=== PATIENT | female | born 1995 | race Caucasian/White ===

== ENCOUNTER 2016-06-09 19:37 | Emergency (ER) | payer OTHER ==
[~2016-06-09] VITALS: Ht 162.6 cm; Wt 63.0 kg
[2016-06-09 19:50] VITALS: Ht 162.6 cm; Wt 63.0 kg
[2016-06-09] MEDS ORDERED: morphine 4 MG/ML VIAL IV STA (20:13)
[2016-06-09] MEDS ORDERED: SOD CHLORIDE 0.9% 100 ML IV STA (20:13)
[2016-06-09] MEDS ORDERED: ONDANSETRON 4 MG INJ IV STA (20:13)
[2016-06-09 20:38] LABS: ADD SCAN DIFF NO
[2016-06-09 20:45] LABS: BASOPHIL # 0.1 10^3/ul (0.0-0.1); BASOPHILS % 0.5 % (0.0-2.0); EOSINOPHILS # 0.1 10^3/ul (0.0-0.5); EOSINOPHILS % 0.5 % (0.0-7.0); HEMATOCRIT 47.5 % (37.0-47.0); HEMOGLOBIN 16.2 g/dl (12.0-16.0); LYMPHOCYTES # 1.4 10^3/ul (0.8-2.9); MEAN CORPUSCULAR HGB CONC 34.1 g/dl (32.0-37.0); MEAN CORPUSCULAR VOLUME 93.7 fl (82.0-101.0); MEAN PLATELET VOLUME 10.3 fl (7.4-10.4); MONOCYTE # 0.5 10^3/ul (0.3-0.9); MONOCYTES % 4.2 % (0.0-11.0); NEUTROPHIL # 8.8 10^3/ul (1.6-7.5); NEUTROPHILS % 81.5 % (39.0-77.0); PLATELET COUNT 278 10^3/UL (140-415); RED BLOOD COUNT 5.07 10^6/ul (4.20-5.40); RED CELL DISTRIBUTION WIDTH 12.5 % (11.5-14.5); WHITE BLOOD COUNT 10.8 10^3/ul (4.8-10.8)
[2016-06-09 20:45] LABS: ADD UMIC YES; URINE BILIRUBIN (Dip) NEGATIVE (NEGATIVE); URINE BLOOD (Dip) NEGATIVE (NEGATIVE); URINE COLOR LT. YELLOW (YELLOW); URINE GLUCOSE (Dip) NEGATIVE (NEGATIVE); URINE KETONES (Dip) NEGATIVE (NEGATIVE); URINE LEUKOCYTE ESTERASE (Dip) NEGATIVE (NEGATIVE); URINE NITRITE (Dip) NEGATIVE (NEGATIVE); URINE TOTAL PROTEIN (Dip) 1+ (NEGATIVE); URINE UROBILINOGEN (Dip) 0.2 E.U./dL (0.1-1.0)
[2016-06-09 21:01] LABS: POTASSIUM 4.2 mmol/L (3.5-5.1)
[2016-06-09 21:03] LABS: BILIRUBIN,INDIRECT 0.3 mg/dl (0-1.1); BILIRUBIN,TOTAL 0.3 mg/dl (0.2-1.3); CREATININE 0.74 mg/dl (0.44-1.00)
[2016-06-09 21:04] LABS: ALBUMIN/GLOBULIN RATIO 1.31; CALCIUM 9.9 mg/dl (8.4-10.2); TOTAL PROTEIN 8.8 g/dl (6.1-8.1)
[2016-06-09 21:40] LABS: BACTERIA,URINE OCCASIONAL; MUCUS,URINE FEW; SQUAMOUS EPITHELIAL CELL,UR FEW; URINE RBCS NONE SEEN /HPF (0)
--- NOTE | 2016-06-09 22:21 | RADRPT ---
PROCEDURE: CT abdomen and pelvis without contrast. CLINICAL INDICATION: Abdominal pain TECHNIQUE: CT scan of the abdomen and pelvis without contrast was performed. Sagittal and coronal reformatted images were obtained from the axial source images. CTDI = 8.87 mGy; DLP = 476.86 mGy-cm COMPARISON: None available. FINDINGS: Visualized lower thorax: The lung bases are clear. There is no evidence for pleural effusion. Liver, gallbladder, pancreas and spleen: The liver is normal and size, contour and attenuation. Th ere is no evidence for a liver mass or ductal dilatation. Tiny hypodensities scattered throughout th e hepatic parenchyma are too small to characterize but most likely reflects cysts the largest approx imately 7 mm in the posterior subcapsular right hepatic lobe The gallbladder is unremarkable. No co mmon bile duct abnormality is demonstrated. The pancreas is unremarkable. The spleen is normal in size. Adrenal glands and genitourinary system: The adrenal glands are normal bilaterally. The kidneys are normal and size, contour and attenuation with no evidence for masses, calculi or hydronephrosis. T he ureters are unremarkable. The urinary bladder is contracted and difficult to evaluate. The uteru s is unremarkable and there is a small less than 2 cm hypodense area within the right ovary/adnexa t here is a water attenuation likely a follicle, there is trace amount of free fluid in the cul-de-sac . Gastrointestinal system: The stomach is normal in caliber and without evidence of wall thickening. The small bowel is normal in caliber with no ileus, obstruction or wall thickening. Some subtle inc reased density within the lumen of the appendix without appendicolith is noted, the appendiceal diam eter is normal as is the surrounding fat. The colon shows no evidence for wall thickening or acute abnormality. There is no evidence for colitis or diverticulitis. Peritoneum, retroperitoneum, lymph nodes and vessels: The abdominal aorta is normal in caliber. No pneumoperitoneum is present. The inferior vena cava is unremarkable. There is no evidence for angelita opathy or mass. There is no ascites. Osseous structures and musculoskeletal findings: There is no fracture, lytic or blastic lesion. Patel bcutaneous scarring within the lower anterior abdominal wall suggest prior surgery, possibly cesarea n section. RPTAT:HJJR IMPRESSION: 1. Trace amount of free fluid in the pelvic cul-de-sac with a small less than 2 cm water attenuatin g lesion in the right ovary/adnexa likely a follicle. 2. No evidence of appendicitis. 3. Lower anterior abdominal wall scar probably from prior section. Physician Corina Date Time Electronically viewed and signed by John Hargrove Physician on 06/09/2016 22:21 JR/
--- NOTE | 2016-06-10 01:21 | RADRPT ---
PROCEDURE: US Pelvis CLINICAL INDICATION: Pelvic pain. TECHNIQUE: Sonographic evaluation of the pelvis was performed utilizing as abdominal technique. C urved array transabdominal transducer was utilized. Images were reviewed on the high-resolution PACS workstation. COMPARISON: 11/14/2014 FINDINGS: Exam is technically limited due to lack of transvaginal imaging. The uterus is normal in size, echogenicity, and morphology, measuring 7.0 x 5.3 x 6.0 cm. The uterus is anteverted in normal position. Endometrial stripe was not well seen due to technical limitation. The ovaries were not seen due to overlying bowel gas. There are no adnexal masses. There is no significant free fluid in the pelvis. IMPRESSION: 1. Technically limited exam without transvaginal imaging. 2. Nonvisualization of the ovaries due to overlying bowel gas. 3. Nonvisualization of endometrial stripe due to technical limitation. 4. Suggest repeat exam with transvaginal imaging. RPTAT: HLDM .Fahad Sanabria MD, MD Date Time Electronically viewed and signed by .Fahad Sanabria MD, on 06/10/2016 01:20 .M/
[2016-06-10] MEDS ORDERED: IBUP-1542 PO (01:53)
[2016-06-10] MEDS ORDERED: ONDA4TAB14 PO (01:54)
[2016-06-10 02:18] VITALS: BP 131/83; PULSE 74; RESP 18; TEMP 98.6
--- NOTE | 2016-06-10 03:30 | ERD ---
ER Documentation Chief Complaint Date/Time DATE: 06/10/16 TIME: 03:23 Chief Complaint N/V TODAY C/O AP HPI Patient is a 21-year-old female who presents emergency department with left lower quadrant pain which started today. Patient states the pain started around 10 AM today. Patient states that the pain is constant. Patient states that she has vomited approximately 10-12 times today, nonbloody nonbilious. Patient also reports 5-6 episodes of nonbloody non-mucous diarrhea. Patient states that earlier today, she had a bulge in her mid left abdomen that popped out and she pushed back in. Patient states that this has been occurring intermittently for the past 5-6 months. Patient states that she ate [employer] for dinner yesterday. Patient denies any fever, chills, pain with urination, urinary frequency, urinary urgency, vaginal bleeding, excessive vaginal discharge. Patient denies any chest pain, shortness of breath, loss of consciousness. Patient's last menstrual period was on 05/11/16. She reports history of abdominal surgery, 3 C-sections. ROS All systems reviewed and are negative except as per history of present illness. Medications Home Meds Active Scripts Ondansetron (Ondansetron Odt) 4 Mg Tab.rapdis, 4 MG PO Q6H Y for NAUSEA AND/OR VOMITING, #10 TAB Prov:LEE ANN BYRD PA-C 06/10/16 Ibuprofen* (Motrin*) 600 Mg Tab, 600 MG PO Q6, #30 TAB Prov:LEE ANN BYRD PA-C 06/10/16 Allergies Allergies: Coded Allergies: No Known Allergy (Verified , 11/13/14) PMhx/Soc Medical and Surgical Hx: pt denies Medical Hx History of Surgery: Yes (3 C SECTIONS) Anesthesia Reaction: No Hx Neurological Disorder: No Hx Respiratory Disorders: No Hx Cardiac Disorders: No Hx Psychiatric Problems: No Hx Miscellaneous Medical Probl: No Hx Alcohol Use: Yes (BEER OCCASIONALLY) Hx Substance Use: No Hx Tobacco Use: Yes Smoking Status: Current every day smoker Physical Exam Vitals Vital Signs Date Time Temp Pulse Resp B/P Pulse Ox O2 Delivery O2 Flow Rate FiO2 06/10/16 02:18 98.6 74 18 131/83 100 06/09/16 19:50 98.5 95 18 118/75 100 Physical Exam GENERAL: Well-developed, well-nourished female. Appears in severe pain. HEAD: Normocephalic, atraumatic. EYES: Pupils are equally reactive bilaterally. EOMs grossly intact. No conjunctival erythema. ENT: Moist mucous membranes. No uvula deviation. No kissing tonsils. NECK: Supple. No meningismus. Normal range of motion of the neck. LUNG: Clear to auscultation bilaterally. No rhonchi, wheezing, rales or coarse breath sounds. HEART: Regular rate and rhythm. No murmurs, rubs or gallops. ABDOMEN: No scars, ecchymosis or rashes noted. Soft, and nondistended. Tender to palpation bilateral lower quadrants. Positive bowel sounds in all four quadrants. No rebound tenderness, no guarding. (-) McBurney's point tenderness. No CVA tenderness. BACK: No midline tenderness. EXTREMITIES: Equal pulses bilaterally. No peripheral clubbing, cyanosis or edema. No unilateral leg swelling. NEUROLOGIC: Alert and oriented. Moving all four extremities without any difficulty. Normal speech. Steady gait. SKIN: Normal color. Warm and dry. No rashes or lesions. Result Diagram: 06/09/16202406/09/162024 Results 24 hrs Laboratory Tests Test 06/09/16 20:25 06/09/16 20:35 Alanine Aminotransferase (ALT/SGPT) 33IU/L Albumin 5.0g/dl Albumin/Globulin Ratio 1.31 Alkaline Phosphatase 94IU/L Anion Gap 20 Aspartate Amino Transf (AST/SGOT) 36IU/L Basophils # 0.110^3/ul Basophils % 0.5% Blood Urea Nitrogen 12mg/dl Calcium Level 9.9mg/dl Carbon Dioxide Level 30mmol/L Chloride Level 102mmol/L Creatinine 0.74mg/dl Direct Bilirubin 0.00mg/dl Eosinophils # 0.110^3/ul Eosinophils % 0.5% Globulin 3.80g/dl Glucose Level 119mg/dl Hematocrit 47.5% Hemoglobin 16.2g/dl Indirect Bilirubin 0.3mg/dl Lipase 32U/L Lymphocytes # 1.410^3/ul Lymphocytes % 13.0% Mean Corpuscular Hemoglobin 32.0pg Mean Corpuscular Hemoglobin Concent 34.1g/dl Mean Corpuscular Volume 93.7fl Mean Platelet Volume 10.3fl Monocytes # 0.510^3/ul Monocytes % 4.2% Neutrophils # 8.810^3/ul Neutrophils % 81.5% Nucleated Red Blood Cells # 0.010^3/ul Nucleated Red Blood Cells % 0.0/100WBC Platelet Count 80107^3/UL Potassium Level 4.2mmol/L Red Blood Count 5.0710^6/ul Red Cell Distribution Width 12.5% Sodium Level 148mmol/L Total Bilirubin 0.3mg/dl Total Protein 8.8g/dl White Blood Count 10.810^3/ul Urine Bacteria OCCASIONAL Urine Bilirubin NEGATIVE Urine Clarity CLEAR Urine Color LT. YELLOW Urine Glucose NEGATIVE% Urine Hemoglobin NEGATIVE Urine Ketones NEGATIVE Urine Leukocyte Esterase NEGATIVE Urine Microscopic RBC NONE SEEN/HPF Urine Microscopic WBC 0-2/HPF Urine Mucus FEW Urine Nitrite NEGATIVE Urine Specific [place] >=1.030 Urine Squamous Epithelial Cells FEW Urine Total Protein 1+ Urine Urobilinogen 0.2 E.U./dL Urine pH 6.0 Current Medications Medications (Trade) Dose Ordered Sig/Rosa Elena Route PRN Reason Start Time Stop Time Status Last Admin Dose Admin Sodium Chloride (NS) 100 ml @ 100 mls/hr Q1H STAT IV 06/09/16 20:13 06/09/16 21:12 DC 06/09/16 20:23 Morphine Sulfate (morphine) 4 mg ONCE STAT IV 06/09/16 20:13 06/09/16 20:16 DC 06/09/16 20:23 Ondansetron HCl (Zofran Inj) 4 mg ONCE STAT IV 06/09/16 20:13 06/09/16 20:16 DC 06/09/16 20:23 Procedures/MDM ED COURSE: The patient was stable throughout ED course. I kept the patient and/or family informed of laboratory and diagnostic imaging results throughout the ED course. DIAGNOSTIC IMAGING: Read by radiologist. DIAGNOSTIC IMAGING REPORT Patient: MICHAEL MCKENZIE : 1995 Age: 21 Sex: F MR #: [id number] DOS: 06/09/162012 Ordering MD: LEE ANN BYRD PA-C Location: [facility] Room/Bed: PROCEDURE: CT abdomen and pelvis without contrast. CLINICAL INDICATION: Abdominal pain TECHNIQUE: CT scan of the abdomen and pelvis without contrast was performed. Sagittal and coronal reformatted images were obtained from the axial source images. CTDI = 8.87 mGy; DLP = 476.86 mGy-cm COMPARISON: None available. FINDINGS: Visualized lower thorax: The lung bases are clear. There is no evidence for pleural effusion. Liver, gallbladder, pancreas and spleen: The liver is normal and size, contour and attenuation. There is no evidence for a liver mass or ductal dilatation. Tiny hypodensities scattered throughout the hepatic parenchyma are too small to characterize but most likely reflects cysts the largest approximately 7 mm in the posterior subcapsular right hepatic lobe The gallbladder is unremarkable. No common bile duct abnormality is demonstrated. The pancreas is unremarkable. The spleen is normal in size. Adrenal glands and genitourinary system: The adrenal glands are normal bilaterally. The kidneys are normal and size, contour and attenuation with no evidence for masses, calculi or hydronephrosis. The ureters are unremarkable. The urinary bladder is contracted and difficult to evaluate. The uterus is unremarkable and there is a small less than 2 cm hypodense area within the right ovary/adnexa there is a water attenuation likely a follicle, there is trace amount of free fluid in the cul-de-sac. Gastrointestinal system: The stomach is normal in caliber and without evidence of wall thickening. The small bowel is normal in caliber with no ileus, obstruction or wall thickening. Some subtle increased density within the lumen of the appendix without appendicolith is noted, the appendiceal diameter is normal as is the surrounding fat. The colon shows no evidence for wall thickening or acute abnormality. There is no evidence for colitis or diverticulitis. Peritoneum, retroperitoneum, lymph nodes and vessels: The abdominal aorta is normal in caliber. No pneumoperitoneum is present. The inferior vena cava is unremarkable. There is no evidence for adenopathy or mass. There is no ascites. Osseous structures and musculoskeletal findings: There is no fracture, lytic or blastic lesion. Subcutaneous scarring within the lower anterior abdominal wall suggest prior surgery, possibly section. RPTAT:HJJR IMPRESSION: 1. Trace amount of free fluid in the pelvic cul-de-sac with a small less than 2 cm water attenuating lesion in the right ovary/adnexa likely a follicle. 2. No evidence of appendicitis. 3. Lower anterior abdominal wall scar probably from prior section. Physician Corina Date Time Electronically viewed and signed by Physician Corina on 06/09/2016 22:21 JR/ CC: LEE ANN BYRD PA-C Given that patient continued to have pelvic pain, a pelvic ultrasound was obtained. See results below. DIAGNOSTIC IMAGING REPORT Patient: MICHAEL MCKENZIE : 1995 Age: 21 Sex: F MR #: [id number] DOS: 06/09/16 2233 Ordering MD: LEE ANN BYRD PA-C Location: [facility] Room/Bed: PROCEDURE: US Pelvis CLINICAL INDICATION: Pelvic pain. TECHNIQUE: Sonographic evaluation of the pelvis was performed utilizing as abdominal technique. Curved array transabdominal transducer was utilized. Images were reviewed on the high-resolution PACS workstation. COMPARISON: 11/14/2014 FINDINGS: Exam is technically limited due to lack of transvaginal imaging. The uterus is normal in size, echogenicity, and morphology, measuring 7.0 x 5.3 x 6.0 cm. The uterus is anteverted in normal position. Endometrial stripe was not well seen due to technical limitation. The ovaries were not seen due to overlying bowel gas. There are no adnexal masses. There is no significant free fluid in the pelvis. IMPRESSION: 1. Technically limited exam without transvaginal imaging. 2. Nonvisualization of the ovaries due to overlying bowel gas. 3. Nonvisualization of endometrial stripe due to technical limitation. 4. Suggest repeat exam with transvaginal imaging. RPTAT: HLDM .Fahad Sanabria MD, Date Time Electronically viewed and signed by .Fahad Sanabria MD, MD on 06/10/2016 01: 20 .M/ CC: LEE ANN BYRD PA-C I discussed these results with the patient including limited findings given that transvaginal US was not performed. Patient states that her pain has improved now and she wishes to go home. Patient is aware that she may return at any time to have additional studies done that were not completed. MEDICATIONS GIVEN: IV fluids, morphine, Zofran Patient tolerated medication well with no adverse reactions. MEDICAL DECISION MAKING: This is a 21-year-old female presents with left lower quadrant pain 1 day. Patient also reports vomiting. Vital signs were reviewed. Patient is afebrile. CBC showed no evidence of systemic infection or severe anemia. CMP showed no evidence of electrolyte abnormalities, severe acidosis, alkalosis, renal failure , or liver disease. Lipase showed no evidence of acute pancreatitis. UA showed no evidence of acute infection or hematuria. Low suspicion for UTI, pyelonephritis or nephrolithiasis. Urine test was negative. CT abdomen and pelvis showed Trace amount of free fluid in the pelvic cul-de-sac with a small less than 2 cm water attenuating lesion in the right ovary/adnexa likely a follicle. No evidence of appendicitis. Lower anterior abdominal wall scar probably from prior section. Patient's transabdominal pelvic US was negative. At this time, patient's presentation is most consistent with abdominal pain of unknown etiology. I have a much lower clinical concern for acute coronary syndrome, AAA, mesenteric ischemia, lower lobe pneumonia, DKA, bowel perforation , bowel obstruction, cholecystitis, pancreatitis, gastritis, GERD, diverticulitis, UTI, pyelonephritis, nephrolithiasis, appendicitis, constipation , , ectopic , PID, ovarian torsion. Patient advised that the "bulge" is describing may be a hernia. Low suspicion for incarcerated or strangulated hernia at this time. Patient will need to follow up with a general surgery for possible surgical repair of her possible hernia. PRESCRIPTIONS: Ibuprofen, Zofran DISCHARGE: At this time, patient is stable for discharge and outpatient management. I have instructed the patient to follow-up with his/her primary care physician in 1-2 days. I have instructed the patient to promptly return to the ER at any time for any new or worsening symptoms including increased pain, nausea, vomiting, diarrhea, fever, weakness or LOC. The patient and/or family expressed understanding of and agreement with this plan. All questions were answered. Home care instructions were provided. Departure Diagnosis: Primary Impression: Abdominal pain Abdominal location: unspecified location Qualified Code: R10.9 - Abdominal pain, unspecified location Additional Impression: Vomiting Vomiting type: unspecified Vomiting Intractability: unspecified Nausea presence: unspecified Qualified Code: R11.10 - Vomiting, intractability of vomiting not specified, presence of nausea not specified, unspecified vomiting type Condition: Stable Patient Instructions: Abdominal Pain Additional Instructions: Return to emergency department for any new or worsening symptoms including but not limited to severe pain, fever, chills, nausea, vomiting or loss of consciousness. Call your primary care doctor TOMORROW for an appointment during the next 1-2 days.See the doctor sooner or return here if your condition worsens before your appointment time. LEE ANN BYRD PA-C Jun 10, 2016 03:30
== END 2016-06-10 02:20 | disposition home or self-care (01) ==
LOC: FTE 19:37
DX: R10.32 Left lower quadrant pain (principal); R11.10 Vomiting, unspecified; F17.210 Nicotine dependence, cigarettes, uncomplicated; R10.2 Pelvic and perineal pain
CPT/HCPCS: 36415; 74176; 76856; 80053; 81001; 83690; 85025; 96374; 96375; J2270; J2405; J7040; Z7502; 81003

== ENCOUNTER 2016-11-25 19:42 | Emergency (ER) | payer OTHER ==
[~2016-11-25] VITALS: Ht 162.6 cm; Wt 72.0 kg
[~2016-11-25 19:42] MED LIST: CEPH-443 PO; CLOT21CR7 VAG; DENIES MEDS; IBUP-1542 PO; ONDA4TAB14 PO; PREN1TAB17 PO
[2016-11-25 19:56] VITALS: Ht 162.6 cm; Wt 72.0 kg
[2016-11-25] MEDS ORDERED: ACETAMINOPHEN 325 MG TAB PO STA (20:24)
[2016-11-25] MEDS ORDERED: ONDANSETRON (ODT) 4 MG TAB ODT STA (20:24)
[2016-11-25 20:48] LABS: BASOPHILS % 0.3 % (0.0-2.0); EOSINOPHILS # 0.4 10^3/ul (0.0-0.5); EOSINOPHILS % 3.9 % (0.0-7.0); HEMATOCRIT 39.7 % (37.0-47.0); HEMOGLOBIN 13.9 g/dl (12.0-16.0); LYMPHOCYTES # 0.9 10^3/ul (0.8-2.9); LYMPHOCYTES % 10.2 % (15.0-51.0); MEAN CORPUSCULAR HEMOGLOBIN 32.9 pg (29.0-33.0); MEAN CORPUSCULAR VOLUME 94.1 fl (82.0-101.0); MEAN PLATELET VOLUME 9.9 fl (7.4-10.4); MONOCYTE # 0.7 10^3/ul (0.3-0.9); MONOCYTES % 7.4 % (0.0-11.0); NEUTROPHILS % 77.9 % (39.0-77.0); PLATELET COUNT 231 10^3/UL (140-415); RED BLOOD COUNT 4.22 10^6/ul (4.20-5.40); RED CELL DISTRIBUTION WIDTH 11.9 % (11.5-14.5)
[2016-11-25 20:57] LABS: ADD UMIC YES; UR ASCORBIC ACID NEGATIVE (NEGATIVE); UR BILIRUBIN (Dip) NEGATIVE (NEGATIVE); UR BLOOD (Dip) 1+ mg/dL (NEGATIVE); UR CLARITY SLIGHTLY CLOUDY (CLEAR); UR COLOR YELLOW (YELLOW); UR GLUCOSE (Dip) NEGATIVE (NEGATIVE); UR KETONES (Dip) 1+ mg/dL (NEGATIVE); UR LEUKOCYTE ESTERASE (Dip) NEGATIVE Leu/ul (NEGATIVE); UR MUCUS FEW /HPF (NONE SEEN); UR NITRITE (Dip) NEGATIVE (NEGATIVE); UR RBC 2 /HPF (0-5); UR SPECIFIC GRAVITY (Dip) 1.017 (1.003-1.030); UR SQUAMOUS EPITHELIAL CELL FEW /HPF (FEW); UR TOTAL PROTEIN (Dip) NEGATIVE (NEGATIVE); UR UROBILINOGEN (Dip) NEGATIVE (NEGATIVE)
[2016-11-25 21:01] LABS: INR 1.03; PROTIME 13.5 Sec (12.2-14.2); PT RATIO 1.1
[2016-11-25 21:02] LABS: PARTIAL THROMBOPLASTIN TIME 31.1 Sec (25.0-35.0)
[2016-11-25 21:15] LABS: ALBUMIN 4.7 g/dl (3.3-4.9); ALBUMIN/GLOBULIN RATIO 1.38; BILIRUBIN,INDIRECT 0.2 mg/dl (0-1.1); BILIRUBIN,TOTAL 0.2 mg/dl (0.2-1.3); CALCIUM 9.8 mg/dl (8.4-10.2); CREATININE 0.71 mg/dl (0.44-1.00); POTASSIUM 3.5 mmol/L (3.5-5.1); TOTAL PROTEIN 8.1 g/dl (6.1-8.1)
--- NOTE | 2016-11-25 22:33 | RADRPT ---
PROCEDURE: US OB. CLINICAL INDICATION: . Pain. TECHNIQUE: Multiple sonographic images of the pelvis were obtained. Transabdominal and transvagin al views of the pelvis are available for review. The images were reviewed on a PACS workstation. COMPARISON: No prior studies are available for comparison. FINDINGS: An intrauterine probable early gestational sac at 10 mm is identified, coarse 25 weeks 4 days size.. No pole or cardiac activity is detected. No subchorionic hemorrhage is identified. There is a 1.9 cm complex right ovarian cyst. The right ovary is otherwise unremarkable with color flow.. Left ovary is not identified. There is no adnexal mass. There is small amount of free fluid in the anterior cul-de-sac. IMPRESSION: 1. Intrauterine sac-like structure at 5 weeks 4 days size without pole or heart motion, likel y represents an early intrauterine too small to identify a pole. pole should be visualized with the next few days. No adnexal mass or gross free fluid to suggest ectopic pregna ncy. 2. Mild free fluid in the anterior cul-de-sac. 3. Left ovary not identified. 4. Hemorrhagic right ovarian probable corpus luteum cyst. RPTAT: HMVK .Patricio Mullins MD, Date Time Electronically viewed and signed by .Patricio Mullins MD, on 11/25/2016 22:33 .K/
[2016-11-25 22:47] VITALS: BP 122/70; PULSE 79; RESP 18; TEMP 98.1
--- NOTE | 2016-11-25 23:30 | ERD ---
ER Documentation Chief Complaint Date/Time DATE: 11/25/16 TIME: 23:25 Chief Complaint GEN AP +N/V/D. SEEN AT [facility] LAST NIGHT. 3 WEEKS PREG. HPI This patient is a 21-year-old female presenting to the emergency department with complaints of generalized abdominal pain, nausea, vomiting, and diarrhea as well as being 3 weeks as a new diagnosis last night. Symptoms have been ongoing intermittently for the past 3 days. Symptoms are worsening now. She is Ab2 LC 3 and last menstrual cycle was 10-11-16. She denies vaginal discharge, bleeding, back pain, fevers, chills, or other symptoms. ROS All systems reviewed and are negative except as per history of present illness. Medications Home Meds Active Scripts Ondansetron (Ondansetron Odt) 4 Mg Tab.rapdis, 4 MG PO Q6H Y for NAUSEA AND/OR VOMITING, #10 TAB Prov:LEE ANN BYRD PA-C 06/10/16 Ibuprofen* (Motrin*) 600 Mg Tab, 600 MG PO Q6, #30 TAB Prov:LEE ANN BYRD PA-C 06/10/16 Allergies Allergies: Coded Allergies: No Known Allergy (Verified , 11/13/14) PMhx/Soc History of Surgery: Yes (3 C SECTIONS) Anesthesia Reaction: No Hx Neurological Disorder: No Hx Respiratory Disorders: No Hx Cardiac Disorders: No Hx Psychiatric Problems: No Hx Miscellaneous Medical Probl: No Hx Alcohol Use: Yes (BEER OCCASIONALLY) Hx Substance Use: No Hx Tobacco Use: Yes Smoking Status: Current every day smoker Physical Exam Vitals Vital Signs Date Time Temp Pulse Resp B/P Pulse Ox O2 Delivery O2 Flow Rate FiO2 11/25/16 22:47 98.1 79 18 122/70 98 Room Air 11/25/16 19:56 98.0 79 18 128/68 96 Physical Exam Const: Nontoxic, well-appearing female in no acute distress. Head: Atraumatic Eyes: Normal Conjunctiva ENT: Normal External Ears, Nose and Mouth. Neck: Full range of motion..~ No meningismus. Resp: Clear to auscultation bilaterally Cardio: Regular rate and rhythm, no murmurs Abd: Soft, non distended. Normal bowel sounds. Mild suprapubic tenderness palpation bilaterally with no laterality to one side. No McBurney's point tenderness. Skin: No petechiae or rashes Back: No midline or flank tenderness Ext: No cyanosis, or edema Neur: Awake and alert Psych: Normal Mood and Affect Result Diagram: 11/25/16203011/25/162030 Results 24 hrs Laboratory Tests Test 11/25/16 20:31 White Blood Count 9.010^3/ul Red Blood Count 4.2210^6/ul Hemoglobin 13.9g/dl Hematocrit 39.7% Mean Corpuscular Volume 94.1fl Mean Corpuscular Hemoglobin 32.9pg Mean Corpuscular Hemoglobin Concent 35.0g/dl Red Cell Distribution Width 11.9% Platelet Count 88013^3/UL Mean Platelet Volume 9.9fl Neutrophils % 77.9% Lymphocytes % 10.2% Monocytes % 7.4% Eosinophils % 3.9% Basophils % 0.3% Nucleated Red Blood Cells % 0.0/100WBC Neutrophils # (Manual) 710^3/ul Lymphocytes # 0.910^3/ul Monocytes # 0.710^3/ul Eosinophils # 0.410^3/ul Basophils # 0.010^3/ul Nucleated Red Blood Cells # 0.010^3/ul Prothrombin Time 13.5Sec Prothrombin Time Ratio 1.1 INR International Normalized Ratio 1.03 Activated Partial Thromboplast Time 31.1Sec Urine Color YELLOW Urine Clarity SLIGHTLY CLOUDY Urine pH 7.0 Urine Specific [place] 1.017 Urine Ketones 1+mg/dL Urine Nitrite NEGATIVEmg/dL Urine Bilirubin NEGATIVEmg/dL Urine Urobilinogen NEGATIVEmg/dL Urine Leukocyte Esterase NEGATIVELeu/ul Urine Microscopic RBC 2/HPF Urine Microscopic WBC 4/HPF Urine Squamous Epithelial Cells FEW/HPF Urine Mucus FEW/HPF Urine Hemoglobin 1+mg/dL Urine Glucose NEGATIVEmg/dL Urine Total Protein NEGATIVEmg/dl Sodium Level 137mmol/L Potassium Level 3.5mmol/L Chloride Level 99mmol/L Carbon Dioxide Level 24mmol/L Anion Gap 18 Blood Urea Nitrogen 7mg/dl Creatinine 0.71mg/dl Glucose Level 94mg/dl Calcium Level 9.8mg/dl Total Bilirubin 0.2mg/dl Direct Bilirubin 0.00mg/dl Indirect Bilirubin 0.2mg/dl Aspartate Amino Transf (AST/SGOT) 20IU/L Alanine Aminotransferase (ALT/SGPT) 30IU/L Alkaline Phosphatase 68IU/L Total Protein 8.1g/dl Albumin 4.7g/dl Globulin 3.40g/dl Albumin/Globulin Ratio 1.38 Beta HCG, Quantitative 88909.0mIU/ml Current Medications Medications (Trade) Dose Ordered Sig/Rosa Elena Route PRN Reason Start Time Stop Time Status Last Admin Dose Admin Acetaminophen (Tylenol Tab) 650 mg ONCE STAT PO 11/25/16 20:24 11/25/16 20:26 DC 11/25/16 20:53 Ondansetron HCl (Zofran Odt) 4 mg ONCE STAT ODT 11/25/16 20:24 11/25/16 20:26 DC 11/25/16 20:53 Procedures/MDM EMERGENCY DEPARTMENT COURSE / MEDICAL DECISION MAKING: This is a 21-year-old female who comes to the emergency room secondary to complaints of nausea, vomiting, diarrhea, and suprapubic pain. The patient was given p.o. Tylenol and p.o. Zofran in the department. On re- evaluation, the patient was feeling improved. Lab results reviewed. CBC: No signs of anemia or leukocytosis. Chemistry: No significant acute abnormalities. UA: No signs of urinary tract infection. Beta-hCG: Consistent with term of . Blood type: ) positive. Radiology: PROCEDURE: US OB. CLINICAL INDICATION: . Pain. TECHNIQUE: Multiple sonographic images of the pelvis were obtained. Transabdominal and transvaginal views of the pelvis are available for review. The images were reviewed on a PACS workstation. COMPARISON: No prior studies are available for comparison. FINDINGS: An intrauterine probable early gestational sac at 10 mm is identified, coarse 25 weeks 4 days size.. No pole or cardiac activity is detected. No subchorionic hemorrhage is identified. There is a 1.9 cm complex right ovarian cyst. The right ovary is otherwise unremarkable with color flow.. Left ovary is not identified. There is no adnexal mass. There is small amount of free fluid in the anterior cul-de-sac. IMPRESSION: 1. Intrauterine sac-like structure at 5 weeks 4 days size without pole or heart motion, likely represents an early intrauterine too small to identify a pole. pole should be visualized with the next few days. No adnexal mass or gross free fluid to suggest ectopic . 2. Mild free fluid in the anterior cul-de-sac. 3. Left ovary not identified. 4. Hemorrhagic right ovarian probable corpus luteum cyst. RPTAT: HMVK .Patricio Mullins MD, MD Date Time Electronically viewed and signed by .Patricio Mullins MD, on 11/25/2016 22:33 The primary diagnosis is and not yet delivered in the first trimester. Secondary diagnosis is diarrhea I have low suspicion for ectopic , tubo-ovarian abscess, acute abdomen , sepsis, and other emergent conditions at this time. Discharge: I have discussed the lab results and diagnostic findings with the patient and answered any questions or concerns. 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 The patient was advised to followup with their PMD in 1-2 days and to return to the Emergency Department if there are any new or worsening symptoms. The patient understood and agreed with the diagnosis, treatment and plan. The patient is stable for discharge at this time. Departure Diagnosis: Primary Impression: and not yet delivered in first trimester Additional Impression: Diarrhea Condition: Fair Patient Instructions: Treating Diarrhea, , Established, Normal Symptoms Additional Instructions: Follow up with your PCP within the next 1-3 days for a repeat evaluation. If you require a referral to a specialist, your Primary Care Provider may be able to provide this for you. In most patient cases, a referral is not required. If you have further questions regarding this matter, please ask your Primary Care Provider. Return the the emergency department immediately if symptoms worsen or change. If you have any questions regarding medications, ask your pharmacist or us before you leave. If any adverse reactions, occur while taking your medications, discontinue the treatment and return to the emergency department immediately. If any new or worsening symptoms, uncontrolled fevers, or other unexplained symptoms occur, return to the emergency department immediately. Take your medications as directed, and complete the entire course of treatment. COLIN PAZ PA-C Nov 25, 2016 23:29
== END 2016-11-25 22:48 | disposition home or self-care (01) ==
LOC: FTE 19:42
DX: O99.89 Other specified diseases and conditions complicating pregnancy, childbirth and the puerperium (principal); R30.0 Dysuria; R10.84 Generalized abdominal pain; O99.331 Smoking (tobacco) complicating pregnancy, first trimester; F17.210 Nicotine dependence, cigarettes, uncomplicated; O21.9 Vomiting of pregnancy, unspecified; R10.2 Pelvic and perineal pain; Z3A.01 Less than 8 weeks gestation of pregnancy
CPT/HCPCS: 36415; 76801; 76817; 80053; 81001; 84702; 85025; 85610; 85730; 86900; 86901; 87086; Z7502; Z7610

== ENCOUNTER 2016-12-01 06:44 | Emergency (ER) | payer OTHER ==
[~2016-12-01] VITALS: Ht 157.5 cm; Wt 75.0 kg
[~2016-12-01 06:44] MED LIST changes: -CEPH-443 PO; -CLOT21CR7 VAG; -DENIES MEDS; -PREN1TAB17 PO
[2016-12-01 06:46] VITALS: Ht 157.5 cm; Wt 75.0 kg
[2016-12-01] MEDS ORDERED: ACETAMINOPHEN 325 MG TAB PO STA (06:55)
[2016-12-01] MEDS ORDERED: ONDANSETRON 4 MG INJ IV STA (06:55)
[2016-12-01] MEDS ORDERED: SOD CHLORIDE 0.9% 1,000 ML IV STA (06:55)
--- NOTE | 2016-12-01 07:06 | ERD ---
ER Documentation Chief Complaint Date/Time DATE: 12/01/16 TIME: 07:02 Chief Complaint 5 weeks with spotting, here before w/ same HPI This is a 21-year-old female 6 para 3 with 2 previous miscarriages. The patient states she is currently 5 weeks dated by last mental period which was in October 2016. The patient recently found out she was 1 week ago when she was seen at [facility] for abdominal cramping. She has not yet received any care but is taking vitamins. She indicates that yesterday she had persistent nausea and decrease in appetite. The patient indicates that she awoke 2 hours prior to arrival and while going to the bathroom had bright red vaginal bleeding. She stated the amount of blood was similar to a normal menstrual cycle. It was associated with severe lower abdominal cramping. She states the abdominal cramping has been persistent for the past 2 hours and is 8 out of 10 in intensity. She has not taken any analgesic medication. She had no fevers or shaking or chills. She denies a headache. She denies any swelling of her lower extremities and no shortness of breath peer ROS All systems reviewed and are negative except as per history of present illness. Medications Home Meds Active Scripts Ondansetron (Ondansetron Odt) 4 Mg Tab.rapdis, 4 MG PO Q6H Y for NAUSEA AND/OR VOMITING, #10 TAB Prov:MARQUIS GARZON 12/01/16 Cephalexin* (Keflex*) 500 Mg Capsule, 500 MG PO QID for 10 Days, CAP Prov:MARQUIS GARZON 12/01/16 Ondansetron (Ondansetron Odt) 4 Mg Tab.rapdis, 4 MG PO Q6H Y for NAUSEA AND/OR VOMITING, #10 TAB Prov:LEE ANN BYRD PA-C 06/10/16 Ibuprofen* (Motrin*) 600 Mg Tab, 600 MG PO Q6, #30 TAB Prov:LEE ANN BYRD PA-C 06/10/16 Allergies Allergies: Coded Allergies: No Known Allergy (Verified , 11/13/14) PMhx/Soc History of Surgery: Yes (3 C SECTIONS) Anesthesia Reaction: No Hx Neurological Disorder: No Hx Respiratory Disorders: No Hx Cardiac Disorders: No Hx Psychiatric Problems: No Hx Miscellaneous Medical Probl: No Hx Alcohol Use: Yes (BEER OCCASIONALLY) Hx Substance Use: No Hx Tobacco Use: Yes Smoking Status: Former smoker Physical Exam Vitals Vital Signs Date Time Temp Pulse Resp B/P Pulse Ox O2 Delivery O2 Flow Rate FiO2 12/01/16 09:21 84 18 110/62 99 Room Air 12/01/16 06:46 99.0 91 18 119/67 99 Physical Exam Constitutional:Well-developed. Well-nourished. HEENT:Normocephalic. Atraumatic.Pupils were equal round reactive to light. Moist mucous membranes.No tonsillar exudates. Neck: No nuchal rigidity. No lymphadenopathy. No posterior cervical spine tenderness or step-offs. Respiratory: Not using accessory muscles of respiration.Lungs were clear to auscultation bilaterally. No rhonchi. No rales. No wheezing. Cardiovascular: Regular rate regular rhythm.No murmurs. No rubs were appreciated.S1, S2 normal. Distal pulses are palpable 2+ bilaterally. GI: Abdomen was soft. Suprapubic tenderness. Non Distended. No pulsatile abdominal masses or bruits. No rebound. No guarding. Bowel sounds were present and normal. : Mild amount of gross blood present within the vaginal vault. Cervix was closed nonfriable. Pelvic exam was performed by myself and the patient denied a female nurse director of entertainment be present. No endocervical discharge. No adnexal masses or CMT tenderness Muscle skeletal: Full range of motion of both the upper and lower extremities bilaterally.Normal muscle tone.No assymetrical calf tenderness or swelling. Skin: No petechia, no purpura. No lesions on the palms or the soles of the feet. No maculopapular rash. NEURO: Patient was alert, awake, orientated x3.No facial droop. Gait observed and normal with no ataxia.Speech had regular rate and rhythm. No focal neurological deficits. Result Diagram: 12/01/16 0715 12/01/16 0715 Results 24 hrs Laboratory Tests Test 12/01/16 07:15 White Blood Count 14.410^3/ul Red Blood Count 4.1610^6/ul Hemoglobin 13.6g/dl Hematocrit 38.5% Mean Corpuscular Volume 92.5fl Mean Corpuscular Hemoglobin 32.7pg Mean Corpuscular Hemoglobin Concent 35.3g/dl Red Cell Distribution Width 11.4% Platelet Count 32780^3/UL Mean Platelet Volume 9.8fl Neutrophils % 83.8% Lymphocytes % 8.3% Monocytes % 6.5% Eosinophils % 0.6% Basophils % 0.4% Nucleated Red Blood Cells % 0.0/100WBC Neutrophils # (Manual) 12.110^3/ul Lymphocytes # 1.210^3/ul Monocytes # 0.910^3/ul Eosinophils # 0.110^3/ul Basophils # 0.110^3/ul Nucleated Red Blood Cells # 0.010^3/ul Prothrombin Time 13.1Sec Prothrombin Time Ratio 1.0 INR International Normalized Ratio 0.99 Activated Partial Thromboplast Time 31.3Sec Urine Color [place] Urine Clarity SLIGHTLY CLOUDY Urine pH 6.0 Urine Specific [place] 1.029 Urine Ketones 1+mg/dL Urine Nitrite NEGATIVEmg/dL Urine Bilirubin NEGATIVEmg/dL Urine Urobilinogen NEGATIVEmg/dL Urine Leukocyte Esterase 3+[place]/ul Urine Microscopic RBC 59/HPF Urine Microscopic WBC 45/HPF Urine Squamous Epithelial Cells FEW/HPF Urine Mucus MANY/HPF Urine Hemoglobin 3+mg/dL Urine Glucose NEGATIVEmg/dL Urine Total Protein 1+mg/dl Sodium Level 137mmol/L Potassium Level 3.4mmol/L Chloride Level 96mmol/L Carbon Dioxide Level 26mmol/L Anion Gap 18 Blood Urea Nitrogen 5mg/dl Creatinine 0.61mg/dl Glucose Level 108mg/dl Calcium Level 9.8mg/dl Total Bilirubin 0.3mg/dl Direct Bilirubin 0.00mg/dl Indirect Bilirubin 0.3mg/dl Aspartate Amino Transf (AST/SGOT) 17IU/L Alanine Aminotransferase (ALT/SGPT) 23IU/L Alkaline Phosphatase 64IU/L Total Protein 8.3g/dl Albumin 4.3g/dl Globulin 4.00g/dl Albumin/Globulin Ratio 1.07 Beta HCG, Quantitative 27804.0mIU/ml Current Medications Medications (Trade) Dose Ordered Sig/Rosa Elena Route PRN Reason Start Time Stop Time Status Last Admin Dose Admin Sodium Chloride (NS) 1,000 ml @ 1,000 mls/hr Q1H STAT IV 12/01/16 06:55 12/01/16 07:54 DC 12/01/16 07:26 Acetaminophen (Tylenol Tab) 650 mg ONCE STAT PO 12/01/16 06:55 8/27/17 07:01 DC 12/01/16 07:26 Ondansetron HCl 4 mg 4 mg ONCE STAT IV 12/01/16 06:55 12/01/16 07:01 DC 12/01/16 07:26 Cefazolin Sodium (Ancef 1 Gm/50 ml (Pmx)) 50 ml @ 100 mls/hr ONCE IVPB 12/01/16 08:30 12/01/16 08:59 DC 12/01/16 08:33 Procedures/MDM This is a very pleasant 21-year-old female who presented to the emergency department with vaginal bleeding her first trimester . IV access was established by nursing staff and she was given a liter bolus of 0.9 normal saline as well as IV Zofran due to her nausea. I also obtained an ultrasound which indicated a single live intrauterine . The patient had a significant urinary tract infection which I did feel could be exacerbating her symptoms and she received IV Ancef after urine culture was obtained. The patient now was able to tolerate oral intake and states she did feel comfortable being discharged home. She was given a prescription of Keflex. Ultrasounds findings included: 1. Single live intrauterine with an estimated gestational age of 6 weeks 2 days by ultrasound criteria, as above. 2. Nonspecific small amount of pelvic free fluid is present. No sonographic evidence to indicate ectopic gestation is seen at this time. The patient was discharged home in fair condition. They were instructed to return to the emergency department at any time if there was any worsening of their condition. The patient stated they would follow up with their PCP in the next 24-48 hours to initiate a suitable medication regimen under the care of their PCP as well as to allow their PCP to monitor any drug reactions. The patient was discharged home with prescriptions after they gave informed consent to the new medication. They were also fully informed by myself on the adverse effects and adverse drug interactions in order to provide adequate safeguards to prevent possible adverse reactions to medications. Departure Diagnosis: Primary Impression: Vaginal bleeding in patient at less than 20 weeks gestation Additional Impression: Urinary tract infection during in first trimester Condition: MARQUIS Mueller Dec 01, 2016 07:06
[2016-12-01 07:48] LABS: BASOPHIL # 0.1 10^3/ul (0.0-0.1); BASOPHILS % 0.4 % (0.0-2.0); EOSINOPHILS # 0.1 10^3/ul (0.0-0.5); EOSINOPHILS % 0.6 % (0.0-7.0); HEMATOCRIT 38.5 % (37.0-47.0); HEMOGLOBIN 13.6 g/dl (12.0-16.0); LYMPHOCYTES # 1.2 10^3/ul (0.8-2.9); LYMPHOCYTES % 8.3 % (15.0-51.0); MEAN CORPUSCULAR HEMOGLOBIN 32.7 pg (29.0-33.0); MEAN CORPUSCULAR HGB CONC 35.3 g/dl (32.0-37.0); MEAN CORPUSCULAR VOLUME 92.5 fl (82.0-101.0); MEAN PLATELET VOLUME 9.8 fl (7.4-10.4); MONOCYTE # 0.9 10^3/ul (0.3-0.9); MONOCYTES % 6.5 % (0.0-11.0); NEUTROPHILS % 83.8 % (39.0-77.0); PLATELET COUNT 291 10^3/UL (140-415); RED BLOOD COUNT 4.16 10^6/ul (4.20-5.40); RED CELL DISTRIBUTION WIDTH 11.4 % (11.5-14.5); WHITE BLOOD COUNT 14.4 10^3/ul (4.8-10.8)
[2016-12-01 07:55] LABS: ADD UMIC YES; UR ASCORBIC ACID NEGATIVE (NEGATIVE); UR BILIRUBIN (Dip) NEGATIVE (NEGATIVE); UR BLOOD (Dip) 3+ mg/dL (NEGATIVE); UR CLARITY SLIGHTLY CLOUDY (CLEAR); UR COLOR AMBER (YELLOW); UR GLUCOSE (Dip) NEGATIVE (NEGATIVE); UR KETONES (Dip) 1+ mg/dL (NEGATIVE); UR LEUKOCYTE ESTERASE (Dip) 3+ Leu/ul (NEGATIVE); UR MUCUS MANY /HPF (NONE SEEN); UR NITRITE (Dip) NEGATIVE (NEGATIVE); UR RBC 59 /HPF (0-5); UR SPECIFIC GRAVITY (Dip) 1.029 (1.003-1.030); UR SQUAMOUS EPITHELIAL CELL FEW /HPF (FEW); UR TOTAL PROTEIN (Dip) 1+ mg/dl (NEGATIVE); UR UROBILINOGEN (Dip) NEGATIVE (NEGATIVE)
[2016-12-01 08:07] LABS: ALBUMIN 4.3 g/dl (3.3-4.9); ALBUMIN/GLOBULIN RATIO 1.07; BILIRUBIN,INDIRECT 0.3 mg/dl (0-1.1); BILIRUBIN,TOTAL 0.3 mg/dl (0.2-1.3); CALCIUM 9.8 mg/dl (8.4-10.2); CREATININE 0.61 mg/dl (0.44-1.00); POTASSIUM 3.4 mmol/L (3.5-5.1); TOTAL PROTEIN 8.3 g/dl (6.1-8.1)
--- NOTE | 2016-12-01 08:14 | RADRPT ---
PROCEDURE: US Obstetric less than 14 weeks. CLINICAL INDICATION: , vaginal bleeding TECHNIQUE: Transabdominal and transvaginal imaging of the pelvis was performed. Images are review ed on a high-resolution PACS workstation. COMPARISON: Ultrasound, 11/25/2016 FINDINGS: Single intrauterine gestation is identified. heart rate is 113 bpm. [place]-rump length = 0.63 cm. Gestational age is 6 weeks 2 days and [place] is 07/25/2017 by ultrasound criteria. Right ovary demonstrates a 1.9 cm corpus luteum cyst. There is no right ovarian torsion. Left ovary is not visualized. No left adnexal mass is seen. Nonspecific small amount of pelvic free fluid is noted. IMPRESSION: 1. Single live intrauterine with an estimated gestational age of 6 weeks 2 days by ultras ound criteria, as above. 2. Nonspecific small amount of pelvic free fluid is present. No sonographic evidence to indicate e ctopic gestation is seen at this time. RPTAT: PP .Indio Wasserman MD, MD Date Time Electronically viewed and signed by .Indio Wasserman MD, on 12/01/2016 08:13 .R/
[2016-12-01 08:15] LABS: INR 0.99; PROTIME 13.1 Sec (12.2-14.2)
[2016-12-01 08:16] LABS: PARTIAL THROMBOPLASTIN TIME 31.3 Sec (25.0-35.0)
[2016-12-01] MEDS ORDERED: CEFAZOLIN 1 GM/50 ML (PMX) 50 ML IVPB SCH (08:30)
[2016-12-01] MEDS ORDERED: CEPH-443 PO (08:54)
[2016-12-01] MEDS ORDERED: ONDA4TAB14 PO (08:54)
[2016-12-01 09:21] VITALS: BP 110/62; PULSE 84; RESP 18
[2016-12-02] MEDS ORDERED: IBUP-1542 PO (02:38)
== END 2016-12-01 09:19 | disposition home or self-care (01) ==
LOC: FTE 06:44
DX: O20.9 Hemorrhage in early pregnancy, unspecified (principal); O23.41 Unspecified infection of urinary tract in pregnancy, first trimester; Z3A.01 Less than 8 weeks gestation of pregnancy; Z87.891 Personal history of nicotine dependence
CPT/HCPCS: 76801; 76817; 80053; 81001; 84702; 85025; 85610; 85730; 86900; 86901; 87086; 96374; 96375; J0690; J2405; J7030; Z7502; Z7610

== ENCOUNTER 2016-12-01 23:41 | Emergency (ER) | payer OTHER ==
[~2016-12-01] VITALS: Ht 162.6 cm; Wt 70.0 kg
[~2016-12-01 23:41] MED LIST changes: +CEPH-443 PO
[2016-12-02 00:07] VITALS: Ht 162.6 cm; Wt 70.0 kg
--- NOTE | 2016-12-02 01:02 | ERD ---
ER Documentation Chief Complaint Date/Time DATE: 12/02/16 TIME: 01:00 Chief Complaint was her this AM, back x worsening VB, 6 weeks HPI 21-year-old female who is A2 6 weeks presents emergency department with worsening vaginal bleeding and back pain. She was here this morning for vaginal bleeding and had a single live intrauterine at 6 weeks, she states that she is now a bleeding heavier with diffuse pelvic cramping and she has also noticed clots. She denies any dizziness, chest pain, shortness of breath. She denies fevers or chills. ROS All systems reviewed and are negative except as per history of present illness. Medications Home Meds Active Scripts Ibuprofen* (Motrin*) 600 Mg Tab, 600 MG PO Q6, #30 TAB Prov:TRENT FERNANDEZ PA-C 12/02/16 Ondansetron (Ondansetron Odt) 4 Mg Tab.rapdis, 4 MG PO Q6H Y for NAUSEA AND/OR VOMITING, #10 TAB Prov:MARQUIS GARZON 12/01/16 Cephalexin* (Keflex*) 500 Mg Capsule, 500 MG PO QID for 10 Days, CAP Prov:MARQUIS GARZON 12/01/16 Ondansetron (Ondansetron Odt) 4 Mg Tab.rapdis, 4 MG PO Q6H Y for NAUSEA AND/OR VOMITING, #10 TAB Prov:LEE ANN BYRD PA-C 06/10/16 Ibuprofen* (Motrin*) 600 Mg Tab, 600 MG PO Q6, #30 TAB Prov:LEE ANN BYRD PA-C 06/10/16 Allergies Allergies: Coded Allergies: No Known Allergy (Verified , 11/13/14) PMhx/Soc History of Surgery: Yes (3 C SECTIONS) Anesthesia Reaction: No Hx Neurological Disorder: No Hx Respiratory Disorders: No Hx Cardiac Disorders: No Hx Psychiatric Problems: No Hx Miscellaneous Medical Probl: No Hx Alcohol Use: Yes (BEER OCCASIONALLY) Hx Substance Use: No Hx Tobacco Use: Yes Physical Exam Vitals Vital Signs Date Time Temp Pulse Resp B/P Pulse Ox O2 Delivery O2 Flow Rate FiO2 12/02/16 00:07 99.6 73 20 110/70 98 Physical Exam =General: Well-developed, well-nourished. The patient appears in no acute distress. HEENT: Head is normocephalic, atraumatic. No scleral icterus. Pupils are equal , round, and reactive. Oral mucous membranes are moist. No pharyngeal erythema. Neck: Supple. Nontender. Lungs: Clear to auscultation. Normal air movement. Heart: Regular rate and rhythm. S1 and S2 are normal. No murmurs, gallops, or rubs. Abdomen: Soft, nontender, nondistended. Bowel sounds are normoactive. : Patient has clots, tissue, it was removed from the vaginal vault. Patient does not have any evidence of hemorrhage. There is a slow ooze of bleeding from the OS Extremities: No clubbing or cyanosis. Normal pulses. Moving extremities x 4. No weakness. Neurologic: Alert and oriented 3. No focal deficits. Skin: Normal turgor. No rash or lesions. Result Diagram: 12/02/1699 Results 24 hrs Laboratory Tests Test 12/02/16 01:00 White Blood Count 15.010^3/ul Red Blood Count 3.8210^6/ul Hemoglobin 12.6g/dl Hematocrit 35.3% Mean Corpuscular Volume 92.4fl Mean Corpuscular Hemoglobin 33.0pg Mean Corpuscular Hemoglobin Concent 35.7g/dl Red Cell Distribution Width 11.6% Platelet Count 69895^3/UL Mean Platelet Volume 9.9fl Neutrophils % 78.5% Lymphocytes % 13.0% Monocytes % 6.3% Eosinophils % 1.4% Basophils % 0.3% Nucleated Red Blood Cells % 0.0/100WBC Neutrophils # (Manual) 11.810^3/ul Lymphocytes # 2.010^3/ul Monocytes # 0.910^3/ul Eosinophils # 0.210^3/ul Basophils # 0.110^3/ul Nucleated Red Blood Cells # 0.010^3/ul Beta HCG, Quantitative 97101.0mIU/ml Current Medications Medications (Trade) Dose Ordered Sig/Rosa Elena Route PRN Reason Start Time Stop Time Status Last Admin Dose Admin Acetaminophen (Tylenol Tab) 650 mg ONCE ONCE PO 12/02/16 01:30 12/02/16 01:31 DC 12/02/16 01:19 DIAGNOSTIC IMAGING REPORT Patient: MICHAEL MCKENZIE : 1995 Age: 21 Sex: F MR #: [id number] DOS: 12/02/16 0043 Ordering MD: TRENT FERNANDEZ PA-C Location: [facility] Room/Bed: PROCEDURE: US OB. CLINICAL INDICATION: . Vaginal bleeding. TECHNIQUE: Multiple sonographic images of the pelvis were obtained. Transabdominal and transvaginal views of the pelvis are available for review. The images were reviewed on a PACS workstation. COMPARISON: 12/01/2016 FINDINGS: The previously demonstrated intrauterine with heart motion is no present within the uterus appear. No intrauterine gestational sac, pole or heart motion is identified. The endometrium is thickened and heterogeneous and measures 18.1 mm. Uterus is otherwise unremarkable. The ovaries are normal in size and echogenicity with normal vascular flow. Right ovary is normal appearance with vascular flow. Left ovary is not visualized. The adnexa are unremarkable. There is no adnexal mass. There is unchanged trace free fluid. IMPRESSION: Previously demonstrated intrauterine longer identified. No live intrauterine identified. Thickened heterogeneous endometrium. Findings are consistent with missed . Trace pelvic free fluid. No adnexal mass. Left ovary not visualized. RPTAT: HMVK .Patricio Mullins MD, MD Date Time Electronically viewed and signed by .Patricio Mullins MD, on 12/02/2016 02:21 .K/ CC: TRENT FERNANDEZ PA-C Procedures/MDM ED course: Patient had labs and urine obtained. I reviewed her EMR, ultrasound that showed a single live intrauterine at 6 weeks. Medical decision makin-year-old female presents with vaginal bleeding, 6 weeks , worsen after being discharged this morning.Patient's ultrasound shows evidence of a miscarriage, as the previous intrauterine is no longer seen at this time. Patient's white blood cell count is likely elevated due to the miscarriage, acute stress reaction, and urinary tract infection. Patient is hemodynamically stable, all labs are unremarkable, she is stable for discharge to be followed up with her OB. Departure Diagnosis: Primary Impression: Miscarriage Condition: Stable TRENT FERNANDEZ PA-C Dec 02, 2016 01:02
[2016-12-02] MEDS ORDERED: ACETAMINOPHEN 325 MG TAB PO ONE (01:30)
[2016-12-02 01:43] LABS: BASOPHIL # 0.1 10^3/ul (0.0-0.1); BASOPHILS % 0.3 % (0.0-2.0); EOSINOPHILS # 0.2 10^3/ul (0.0-0.5); EOSINOPHILS % 1.4 % (0.0-7.0); HEMATOCRIT 35.3 % (37.0-47.0); HEMOGLOBIN 12.6 g/dl (12.0-16.0); MEAN CORPUSCULAR HGB CONC 35.7 g/dl (32.0-37.0); MEAN CORPUSCULAR VOLUME 92.4 fl (82.0-101.0); MEAN PLATELET VOLUME 9.9 fl (7.4-10.4); MONOCYTE # 0.9 10^3/ul (0.3-0.9); MONOCYTES % 6.3 % (0.0-11.0); NEUTROPHILS % 78.5 % (39.0-77.0); PLATELET COUNT 295 10^3/UL (140-415); RED BLOOD COUNT 3.82 10^6/ul (4.20-5.40); RED CELL DISTRIBUTION WIDTH 11.6 % (11.5-14.5)
--- NOTE | 2016-12-02 02:21 | RADRPT ---
PROCEDURE: US OB. CLINICAL INDICATION: . Vaginal bleeding. TECHNIQUE: Multiple sonographic images of the pelvis were obtained. Transabdominal and transvagin al views of the pelvis are available for review. The images were reviewed on a PACS workstation. COMPARISON: 12/01/2016 FINDINGS: The previously demonstrated intrauterine with heart motion is no present within the uterus appear. No intrauterine gestational sac, pole or heart motion is identified. The endo metrium is thickened and heterogeneous and measures 18.1 mm. Uterus is otherwise unremarkable. The ovaries are normal in size and echogenicity with normal vascular flow. Right ovary is normal appear ance with vascular flow. Left ovary is not visualized. The adnexa are unremarkable. There is no a dnexal mass. There is unchanged trace free fluid. IMPRESSION: Previously demonstrated intrauterine longer identified. No live intrauterine id entified. Thickened heterogeneous endometrium. Findings are consistent with missed . Trace pelvic free fluid. No adnexal mass. Left ovary not visualized. RPTAT: HMVK .Patricio Mullins MD, MD Date Time Electronically viewed and signed by .Patricio Mullins MD, MD on 12/02/2016 02:21 .K/
[2016-12-02] MEDS ORDERED: IBUP-1542 PO (02:38)
[2016-12-02 02:49] VITALS: BP 127/62; PULSE 86; RESP 18; TEMP 98.3
== END 2016-12-02 02:50 | disposition home or self-care (01) ==
LOC: FTE 23:41
DX: O03.9 Complete or unspecified spontaneous abortion without complication (principal); R10.2 Pelvic and perineal pain; Z87.891 Personal history of nicotine dependence
CPT/HCPCS: 36415; 76801; 76817; 84702; 85025; Z7502; Z7610

== ENCOUNTER 2017-02-22 07:40 | Emergency (ER) | payer OTHER ==
[~2017-02-22] VITALS: Ht 167.6 cm; Wt 69.2 kg
[2017-02-22 07:42] VITALS: Ht 167.6 cm; Wt 69.2 kg
[2017-02-22] MEDS ORDERED: ACETAMINOPHEN 500 MG TAB PO STA (07:56)
[2017-02-22 08:21] LABS: BASOPHILS % 0.4 % (0.0-2.0); EOSINOPHILS # 0.1 10^3/ul (0.0-0.5); EOSINOPHILS % 1.1 % (0.0-7.0); HEMATOCRIT 38.8 % (37.0-47.0); HEMOGLOBIN 13.5 g/dl (12.0-16.0); LYMPHOCYTES # 1.3 10^3/ul (0.8-2.9); LYMPHOCYTES % 12.4 % (15.0-51.0); MEAN CORPUSCULAR HEMOGLOBIN 32.1 pg (29.0-33.0); MEAN CORPUSCULAR HGB CONC 34.8 g/dl (32.0-37.0); MEAN CORPUSCULAR VOLUME 92.2 fl (82.0-101.0); MEAN PLATELET VOLUME 10.2 fl (7.4-10.4); MONOCYTE # 0.7 10^3/ul (0.3-0.9); NEUTROPHIL # 8.6 10^3/ul (1.6-7.5); NEUTROPHILS % 79.8 % (39.0-77.0); PLATELET COUNT 259 10^3/UL (140-415); RED BLOOD COUNT 4.21 10^6/ul (4.20-5.40); RED CELL DISTRIBUTION WIDTH 12.2 % (11.5-14.5); WHITE BLOOD COUNT 10.8 10^3/ul (4.8-10.8)
[2017-02-22 08:30] LABS: ADD UMIC YES; UR ASCORBIC ACID NEGATIVE (NEGATIVE); UR BACTERIA FEW /HPF (NONE SEEN); UR BILIRUBIN (Dip) NEGATIVE (NEGATIVE); UR BLOOD (Dip) 2+ mg/dL (NEGATIVE); UR CLARITY CLOUDY (CLEAR); UR COLOR YELLOW (YELLOW); UR GLUCOSE (Dip) NEGATIVE (NEGATIVE); UR KETONES (Dip) NEGATIVE (NEGATIVE); UR LEUKOCYTE ESTERASE (Dip) 2+ Leu/ul (NEGATIVE); UR MUCUS FEW /HPF (NONE SEEN); UR NITRITE (Dip) NEGATIVE (NEGATIVE); UR RBC 3 /HPF (0-5); UR SPECIFIC GRAVITY (Dip) 1.017 (1.003-1.030); UR SQUAMOUS EPITHELIAL CELL MODERATE /HPF (FEW); UR TOTAL PROTEIN (Dip) NEGATIVE (NEGATIVE); UR UROBILINOGEN (Dip) NEGATIVE (NEGATIVE)
--- NOTE | 2017-02-22 09:04 | RADRPT ---
PROCEDURE: US OB. CLINICAL INDICATION: First trimester hemorrhage. Threatened . TECHNIQUE: Multiple sonographic images of the pelvis were obtained. Transvaginal probe was used. The images were reviewed on a PACS workstation. COMPARISON: No prior studies are available for comparison. FINDINGS: Uterus is anteverted. It measures 8.1 by 5.4 cm. Noted is a single intrauterine gestation sac with y olk sac. pole and heart beat are not seen yet. Mean sac diameter measures 11 mm correspo nding to a gestational age 5 weeks 5 days by ultrasound criteria. There is a thick regular decidual reaction. No subchorionic hemorrhage is identified. The right ovary measures 2.5 x 1.3 x 1.3 cm. Left ovary measures 2.7 x 2.5 x 2.4 cm. No adnexal mass es present. There is normal arterial flow to both ovaries on color-flow Doppler imaging. A 2 cm hemo rrhagic corpus luteum of the left ovary is present. There is no free fluid in the pelvis. No solid pelvic masses present. IMPRESSION: 7-dwcd-8-day intrauterine gestation sac by ultrasound criteria with yolk sac. pole and h eart beat are not yet identified. No subchorionic. Hemorrhage. Normal ovaries. .Catrachito Singh MD, Date Time Electronically viewed and signed by .Catrachito Singh MD, MD on 02/22/2017 09:03 .A/
[2017-02-22] MEDS ORDERED: ACET500C5 PO (09:22)
[2017-02-22] MEDS ORDERED: CEPH-443 PO (09:22)
[2017-02-22] MEDS ORDERED: GUAI-637 PO (09:23)
--- NOTE | 2017-02-22 09:33 | ERD ---
ER Documentation Chief Complaint Chief Complaint Complains of cough, colds and flu symptoms x 1week HPI Patient is a 22-year-old female, , presents ED for concerns of pelvic pain as well as flu symptoms. Patient states her pelvic pain started 3 days ago. Patient states she has noted blood while wiping. Patient recently went to [facility] was diagnosed at that time. Patient was advised to follow-up in 2 days given that IUP was not seen however she states she did not. Patient denies any significant vaginal bleeding. Patient denies using any pads. Patient does report suprapubic pain. Patient denies any fevers or chills. Patient does admits to nausea however she denies any vomiting. Patient states she has had a cough 1 week now. Patient also reports rhinorrhea. Patient reports a mild throat pain however she denies any trismus, drooling or hyperextension of her neck. Patient denies any chest pain or shortness of breath. Patient states her last menstrual period was on January 12, 2017. ROS All systems reviewed and are negative except as per history of present illness. Medications Home Meds Active Scripts Guaifenesin* (Robitussin*) 100 Mg/5 Ml Syrup, 100 MG PO Q8 Y for COUGH, #1 BOT Prov:LEE ANN BYRD PA-C 02/22/17 Cephalexin* (Keflex*) 500 Mg Capsule, 500 MG PO QID for 7 Days, CAP Prov:LEE ANN BYRD PA-C 02/22/17 Acetaminophen* (Tylophen*) 500 Mg Capsule, 1 CAP PO Q6H Y for PAIN AND OR ELEVATED TEMP, #20 CAP Prov:LEE ANN BYRD PA-C 02/22/17 Ibuprofen* (Motrin*) 600 Mg Tab, 600 MG PO Q6, #30 TAB Prov:TRENT FERNANDEZ PA-C 12/02/16 Ondansetron (Ondansetron Odt) 4 Mg Tab.rapdis, 4 MG PO Q6H Y for NAUSEA AND/OR VOMITING, #10 TAB Prov:MARQUIS GARZON 12/01/16 Cephalexin* (Keflex*) 500 Mg Capsule, 500 MG PO QID for 10 Days, CAP Prov:MARQUIS GARZON 12/01/16 Ondansetron (Ondansetron Odt) 4 Mg Tab.rapdis, 4 MG PO Q6H Y for NAUSEA AND/OR VOMITING, #10 TAB Prov:RIVER BYRDFRANCESCA RAGLAND 06/10/16 Ibuprofen* (Motrin*) 600 Mg Tab, 600 MG PO Q6, #30 TAB Prov:LEE ANN BYRD OBIE 06/10/16 Allergies Allergies: Coded Allergies: No Known Allergy (Verified , 11/13/14) PMhx/Soc History of Surgery: Yes (3 C SECTIONS) Anesthesia Reaction: No Hx Neurological Disorder: No Hx Respiratory Disorders: No Hx Cardiac Disorders: No Hx Psychiatric Problems: No Hx Miscellaneous Medical Probl: No Hx Alcohol Use: No Hx Substance Use: No Hx Tobacco Use: No Physical Exam Vitals Vital Signs Date Time Temp Pulse Resp B/P Pulse Ox O2 Delivery O2 Flow Rate FiO2 02/22/17 07:42 98.9 101 20 135/65 95 Physical Exam GENERAL: Well-developed, well-nourished female. Appears in no acute distress. Speaking in full sentences. HEAD: Normocephalic, atraumatic. No deformities or ecchymosis. EYE: Pupils equal, round, and reactive to light. EOMs intact. No conjunctival erythema. No eye discharge. ENT: External ear without any masses or tenderness. Auditory canals clear bilaterally. TM visualized bilaterally, non-erythematous, non-bulging. Nasal mucosa pink with no discharge. Oropharynx is erythematous without any tonsillar erythema or exudates. No uvula deviation. No kissing tonsils. NECK: Supple. No meningismus. Normal ROM of the neck. LUNG: Clear to auscultation bilaterally. No rhonchi, wheezing, rales or coarse breath sounds. HEART: Regular rate and rhythm. No murmurs, rubs or gallops. ABDOMEN: Soft, nondistended. Tender to palpation over suprapubic region. Positive bowel sounds in all four quadrants. No rebound tenderness, no guarding. (-) McBurney's point tenderness. No CVA tenderness. BACK: No midline tenderness. EXTREMITIES: Equal pulses bilaterally. No peripheral clubbing, cyanosis or edema. No unilateral leg swelling. NEUROLOGIC: Alert and oriented to person, place and time. Moving all four extremities. 5/5 strength in all extremities. Normal speech. Steady gait. SKIN: Normal color. Warm and dry. No rashes or lesions. Result Diagram: 02/22/17 0808 Results 24 hrs Laboratory Tests Test 02/22/17 08:03 02/22/17 08:08 Urine Color YELLOW Urine Clarity CLOUDY Urine pH 6.0 Urine Specific [place] 1.017 Urine Ketones NEGATIVEmg/dL Urine Nitrite NEGATIVEmg/dL Urine Bilirubin NEGATIVEmg/dL Urine Urobilinogen NEGATIVEmg/dL Urine Leukocyte Esterase 2+Laverne/ul Urine Microscopic RBC 3/HPF Urine Microscopic WBC 10/HPF Urine Squamous Epithelial Cells MODERATE/HPF Urine Bacteria FEW/HPF Urine Mucus FEW/HPF Urine Hemoglobin 2+mg/dL Urine Glucose NEGATIVEmg/dL Urine Total Protein NEGATIVEmg/dl White Blood Count 10.810^3/ul Red Blood Count 4.2110^6/ul Hemoglobin 13.5g/dl Hematocrit 38.8% Mean Corpuscular Volume 92.2fl Mean Corpuscular Hemoglobin 32.1pg Mean Corpuscular Hemoglobin Concent 34.8g/dl Red Cell Distribution Width 12.2% Platelet Count 40194^3/UL Mean Platelet Volume 10.2fl Neutrophils % 79.8% Lymphocytes % 12.4% Monocytes % 6.0% Eosinophils % 1.1% Basophils % 0.4% Nucleated Red Blood Cells % 0.0/100WBC Neutrophils # 8.610^3/ul Lymphocytes # 1.310^3/ul Monocytes # 0.710^3/ul Eosinophils # 0.110^3/ul Basophils # 0.010^3/ul Nucleated Red Blood Cells # 0.010^3/ul Beta HCG, Quantitative 18846.0mIU/ml Current Medications Medications (Trade) Dose Ordered Sig/Rosa Elena Route PRN Reason Start Time Stop Time Status Last Admin Dose Admin Acetaminophen (Tylenol Tab) 500 mg ONCE STAT PO 02/22/17 07:56 02/22/17 07:57 DC 02/22/17 08:09 Procedures/MDM ED COURSE: The patient was stable throughout ED course. I kept the patient and/or family informed of laboratory and diagnostic imaging results throughout the ED course. DIAGNOSTIC IMAGING: Read by radiologist. Patient: MICHAEL MCKENZIE : 1995 Age: 22 Sex: F MR #: [id number] DOS: 02/22/17 0756 Ordering MD: LEE ANN BYRD PA-C Location: [facility] Room/Bed: PROCEDURE: US OB. CLINICAL INDICATION: First trimester hemorrhage. Threatened . TECHNIQUE: Multiple sonographic images of the pelvis were obtained. Transvaginal probe was used. The images were reviewed on a PACS workstation. COMPARISON: No prior studies are available for comparison. FINDINGS: Uterus is anteverted. It measures 8.1 by 5.4 cm. Noted is a single intrauterine gestation sac with yolk sac. pole and heart beat are not seen yet. Mean sac diameter measures 11 mm corresponding to a gestational age 5 weeks 5 days by ultrasound criteria. There is a thick regular decidual reaction. No subchorionic hemorrhage is identified. The right ovary measures 2.5 x 1.3 x 1.3 cm. Left ovary measures 2.7 x 2.5 x 2.4 cm. No adnexal masses present. There is normal arterial flow to both ovaries on color-flow Doppler imaging. A 2 cm hemorrhagic corpus luteum of the left ovary is present. There is no free fluid in the pelvis. No solid pelvic masses present. IMPRESSION: 7-gnui-9-day intrauterine gestation sac by ultrasound criteria with yolk sac. pole and heart beat are not yet identified. No subchorionic. Hemorrhage. Normal ovaries. .Catrachito Singh MD, MD Date Time Electronically viewed and signed by .Catrachito Singh MD, MD on 02/22/2017 09: 03 .A/ CC: LEE ANN BYRD PA-C PROCEDURES: None. MEDICATIONS GIVEN: Tylenol Patient tolerated medication well with no adverse reactions. MEDICAL DECISION MAKING: This is a 22-year-old female, G 6, P3, presents ED for concerns of pelvic pain as well as selective history patient was recently diagnosed about a week ago. Patient states she was told to follow-up and that an IUP was not visualized however she did not. Patient states she has had a dry cough, rhinorrhea and throat pain for a week now. Patient denies taking the medication. Vital signs were reviewed. Patient was afebrile. Patient was not hypoxic. ENT exam was normal. Lung exam was normal. Blood work was obtained. Patient's CBC showed no signs of acute systemic infection or anemia. [place] [address]. Blood type was O+, no indication for RhoGam at this time. Pelvis US showed 7-crbq-3-day intrauterine gestation sac by ultrasound criteria with yolk sac. pole and heart beat are not yet identified. No subchorionic Hemorrhage. Normal ovaries. Given that patient is , expected patient that I am unable to order a chest x-ray at this time. Patient will be treated for her symptoms. Patient's urine was also positive for leukocyte esterase as well as WBCs. Patient will be treated for UTI at this time as well. At this time, patient's presentation is most consistent with vaginal bleeding during first trimester, UTI, viral URI. Low suspicion for , complete , incomplete , , subchorionic hematoma, an embryonic . Low suspicion for meningitis, pneumonia, strep pharyngitis, acute otitis media, pyelonephritis, nephrolithiasis. I explained to the patient that she will need to have a repeat pelvic ultrasound and beta hCG in 2 days given that pole and heart tones were not identified on ultrasound today. Patient understands and agrees return in 2 days for follow-up examination. PRESCRIPTIONS: Tylenol, Keflex, Robitussin DISCHARGE: At this time, patient is stable for discharge and outpatient management. Supportive therapies such as OTC throat lozenges, salt water gurgles, popsicles and jello discussed. I have instructed the patient to follow-up with his/her primary care physician in 1-2 days. I have instructed the patient to promptly return to the ER for any new or worsening symptoms including increased pain, swelling, fever, nausea, vomiting, weakness or difficulty breathing. I had a conversation at length with the patient about the concerns of vaginal bleeding during the 1st trimester of . Patient and/or family understands that her vaginal bleeding can be a normal finding or a sign of miscarriage. I have instructed the patient to follow-up with her OBGYN in 1-2 days for further monitoring including a repeat b-HCG level.The patient and/or family expressed understanding of and agreement with this plan. All questions were answered. Home care instructions were provided. Disclaimer: Inadvertent spelling and grammatical errors are likely due to EHR/ dictation software use and do not reflect on the overall quality of patient care. Also, please note that the electronic time recorded on this note does not necessarily reflect the actual time of the patient encounter. Departure Diagnosis: Primary Impression: Vaginal bleeding in patient at less than 20 weeks ges... Additional Impressions: UTI (urinary tract infection) Urinary tract infection type: site unspecified Hematuria presence: without hematuria Qualified Code: N39.0 - Urinary tract infection without hematuria, site unspecified URI (upper respiratory infection) URI type: unspecified URI Qualified Code: J06.9 - Upper respiratory tract infection, unspecified type Condition: Stable Patient Instructions: Understanding Urinary Tract Infections (UTIs), Preventing Common Respiratory Infections, Vaginal Bleed in Referrals: [facility] YOU HAVE RECEIVED A MEDICAL SCREENING EXAM AND THE RESULTS INDICATE THAT YOU DO NOT HAVE A CONDITION THAT REQUIRES URGENT TREATMENT IN THE EMERGENCY DEPARTMENT. FURTHER EVALUATION AND TREATMENT OF YOUR CONDITION CAN WAIT UNTIL YOU ARE SEEN IN YOUR DOCTORS OFFICE WITHIN THE NEXT 1-2 DAYS. IT IS YOUR RESPONSIBILITY TO MAKE AN APPOINTMENT FOR FOLOW-UP CARE. IF YOU HAVE A PRIMARY DOCTOR --you should call your primary doctor and schedule an appointment IF YOU DO NOT HAVE A PRIMARY DOCTOR YOU CAN CALL OUR PHYSICIAN REFERRAL HOTLINE AT IF YOU CAN NOT AFFORD TO SEE A PHYSICIAN YOU CAN CHOSE FROM THE FOLLOWING [facility] [address] [facility]. [facility] [address] [facility]. [facility] [address] [facility] [address] [facility] [address] [facility]. [facility]. [address] [facility]. [facility] YOU HAVE RECEIVED A MEDICAL SCREENING EXAM AND THE RESULTS INDICATE THAT YOU DO NOT HAVE A CONDITION THAT REQUIRES URGENT TREATMENT IN THE EMERGENCY DEPARTMENT. FURTHER EVALUATION AND TREATMENT OF YOUR CONDITION CAN WAIT UNTIL YOU ARE SEEN IN YOUR DOCTORS OFFICE WITHIN THE NEXT 1-2 DAYS. IT IS YOUR RESPONSIBILITY TO MAKE AN APPOINTMENT FOR FOLOW-UP CARE. IF YOU HAVE A PRIMARY DOCTOR --you should call your primary doctor and schedule and appointment IF YOU DO NOT HAVE A PRIMARY DOCTOR YOU CAN CALL OUR PHYSICIAN REFERRAL HOTLINE AT . IF YOU CAN NOT AFFORD TO SEE A PHYSICIAN YOU CAN CHOSE FROM THE FOLLOWING [facility] INSTITUTIONS: [facility] [address] [place] [address] [facility] [address] [place] [address] [facility] + [facility] [address] [place] [address] CLIENT SERVICE PROFESSIONAL [place] [address] [facility] [address] [place] [address] OFFICE FAX , [facility] [address] [place] [address] [address] JHAFORMERLY [facility] [address] [place] [address] [address] PRAS[address] [facility] [address] [facility], [address], [facility] [address] [address] [address] [place] [address] [facility] [address] [place] [address] [phone] [address] [facility] [address] - [place], [facility] [address] [address] [address] [facility]. [address], [facility] [address] [address] [address] [place], [place] [id number] Additional Instructions: Return in 2 days for repeat beta-hCG and ultrasound. Follow-up with an CLIENT SERVICE PROFESSIONAL in the next week. Call your primary care doctor TOMORROW for an appointment during the next 1-2 days.See the doctor sooner or return here if your condition worsens before your appointment time. LEE ANN BYRD PA-C Feb 22, 2017 09:33
== END 2017-02-22 10:13 | disposition home or self-care (01) ==
LOC: FTE 07:40
DX: O20.9 Hemorrhage in early pregnancy, unspecified (principal); O23.41 Unspecified infection of urinary tract in pregnancy, first trimester; J06.9 Acute upper respiratory infection, unspecified; O99.511 Diseases of the respiratory system complicating pregnancy, first trimester; R10.2 Pelvic and perineal pain; Z3A.01 Less than 8 weeks gestation of pregnancy
CPT/HCPCS: 36415; 76801; 76817; 81001; 84702; 85025; 86900; 86901; Z7502; Z7610

== ENCOUNTER 2017-02-25 23:53 | Emergency (ER) | payer OTHER ==
[~2017-02-25] VITALS: Ht 154.9 cm; Wt 70.4 kg
[~2017-02-25 23:53] MED LIST changes: +ACET500C5 PO; +GUAI-637 PO
[2017-02-26 00:24] VITALS: Ht 154.9 cm; Wt 70.4 kg
[2017-02-26] MEDS ORDERED: ACETAMINOPHEN 325 MG TAB PO STA (03:04)
--- NOTE | 2017-02-26 03:19 | ERD ---
ER Documentation Chief Complaint Chief Complaint vaginal bleed x2 days, was here 2 days ago, worst. Poor appetite HPI 22-year-old female presents here to emergency department for complaints of vaginal bleeding that started 2 days ago, patient continues to bleed, now is heavier, more clots. Patient has not soaked any pads. Patient is complaining of pelvic pain cramping pain, 4/10 scale, not better or worse with anything. Patient is 6 para 3 2. LMP is January 12, 2017. She was here 2 days ago, had ultrasound and blood work done, was told to return in 2 days for recheck. ROS All systems reviewed and are negative except as per history of present illness. Medications Home Meds Active Scripts Guaifenesin* (Robitussin*) 100 Mg/5 Ml Syrup, 100 MG PO Q8 Y for COUGH, #1 BOT Prov:LEE ANN BYRD PA-C 02/22/17 Cephalexin* (Keflex*) 500 Mg Capsule, 500 MG PO QID for 7 Days, CAP Prov:LEE ANN BYRD PA-C 02/22/17 Acetaminophen* (Tylophen*) 500 Mg Capsule, 1 CAP PO Q6H Y for PAIN AND OR ELEVATED TEMP, #20 CAP Prov:LEE ANN BYRD PA-C 02/22/17 Ibuprofen* (Motrin*) 600 Mg Tab, 600 MG PO Q6, #30 TAB Prov:TRENT FERNANDEZ PA-C 12/02/16 Ondansetron (Ondansetron Odt) 4 Mg Tab.rapdis, 4 MG PO Q6H Y for NAUSEA AND/OR VOMITING, #10 TAB Prov:MARQUIS GARZON 12/01/16 Cephalexin* (Keflex*) 500 Mg Capsule, 500 MG PO QID for 10 Days, CAP Prov:MARQUIS GARZON 12/01/16 Ondansetron (Ondansetron Odt) 4 Mg Tab.rapdis, 4 MG PO Q6H Y for NAUSEA AND/OR VOMITING, #10 TAB Prov:LEE ANN BYRD PA-C 06/10/16 Ibuprofen* (Motrin*) 600 Mg Tab, 600 MG PO Q6, #30 TAB Prov:LEE ANN BYRD PA-C 06/10/16 Allergies Allergies: Coded Allergies: No Known Allergy (Verified , 11/13/14) PMhx/Soc History of Surgery: Yes (3 C SECTIONS) Anesthesia Reaction: No Hx Neurological Disorder: No Hx Respiratory Disorders: No Hx Cardiac Disorders: No Hx Psychiatric Problems: No Hx Miscellaneous Medical Probl: No Hx Alcohol Use: No Hx Substance Use: No Hx Tobacco Use: No Smoking Status: Current every day smoker FmHx Family History: No coronary disease, No diabetes, No other Physical Exam Vitals Vital Signs Date Time Temp Pulse Resp B/P Pulse Ox O2 Delivery O2 Flow Rate FiO2 02/26/17 00:24 98.6 97 18 116/68 99 Physical Exam GENERAL: The patient is well developed and appropriate for usual state of health, in no apparent distress. CHEST: Clear to auscultation bilaterally. There are no rales, wheezes or rhonchi. HEART: Regular rate and rhythm. No murmurs, clicks, rubs or gallops. No S3 or S4. ABDOMEN: Soft, nontender and nondistended. Good bowel sounds. No rebound or guarding. No gross peritonitis. No gross organomegaly or masses. No Louie sign or McBurney point tenderness. BACK: No midline or flank tenderness. EXTREMITIES: Equal pulses bilaterally. There is no peripheral clubbing, cyanosis or edema. No focal swelling or erythema. Full range of motion. Grossly neurovascularly intact. NEURO: Alert and oriented. Cranial nerves 2-12 intact. Motor strength in all 4 extremities with 5/5 strength. Sensation grossly intact. Normal speech and gait. SKIN: There is no apparent rash or petechia. The skin is warm and dry. HEMATOLOGIC AND LYMPHATIC: There is no evidence of excessive bruising or lymphedema. No gross cervical, axillary, or inguinal lymphadenopathy. VAGINAL: Small amount of blood in vaginal vault. Cervical os is closed. No cervical motion tenderness or adnexal tenderness noted. Result Diagram: 02/26/17 0320 Results 24 hrs Laboratory Tests Test 02/26/17 03:20 White Blood Count 8.910^3/ul Red Blood Count 3.8910^6/ul Hemoglobin 12.5g/dl Hematocrit 35.7% Mean Corpuscular Volume 91.8fl Mean Corpuscular Hemoglobin 32.1pg Mean Corpuscular Hemoglobin Concent 35.0g/dl Red Cell Distribution Width 11.9% Platelet Count 60247^3/UL Mean Platelet Volume 9.8fl Neutrophils % 71.6% Lymphocytes % 20.7% Monocytes % 5.9% Eosinophils % 1.1% Basophils % 0.4% Nucleated Red Blood Cells % 0.0/100WBC Neutrophils # 6.410^3/ul Lymphocytes # 1.910^3/ul Monocytes # 0.510^3/ul Eosinophils # 0.110^3/ul Basophils # 0.010^3/ul Nucleated Red Blood Cells # 0.010^3/ul Urine Color YELLOW Urine Clarity CLOUDY Urine pH 6.0 Urine Specific [place] 1.013 Urine Ketones TRACEmg/dL Urine Nitrite NEGATIVEmg/dL Urine Bilirubin NEGATIVEmg/dL Urine Urobilinogen 1+mg/dL Urine Leukocyte Esterase 2+Laverne/ul Urine Microscopic RBC 3/HPF Urine Microscopic WBC 5/HPF Urine Squamous Epithelial Cells MANY/HPF Urine Amorphous Crystals MODERATE/HPF Urine Bacteria FEW/HPF Urine Mucus FEW/HPF Urine Hemoglobin 2+mg/dL Urine Glucose NEGATIVEmg/dL Urine Total Protein NEGATIVEmg/dl Current Medications Medications (Trade) Dose Ordered Sig/Rosa Elena Route PRN Reason Start Time Stop Time Status Last Admin Dose Admin Acetaminophen (Tylenol Tab) 650 mg ONCE STAT PO 02/26/17 03:04 02/26/17 03:06 DC 02/26/17 03:20 Patient was given medication for pain here in emergency department, after treatment, patient verbalized feeling much better. Patient's pain is improved. PROCEDURE: US OB. CLINICAL INDICATION: Vaginal bleeding . Clinical estimate gestational age is 6 weeks 3 days with estimated date of delivery 10/19/2017. TECHNIQUE: Transabdominal and transvaginal views of the pelvis are available for review. COMPARISON: 02/22/2017 FINDINGS: [place]-rump length: 0.35 cm heart rate: The special procedures technologist reports visualization of embryonic heart activity flicker. However, M-mode tracing of embryonic heart activity could not be obtained due to early gestational age. Ultrasound estimated gestational age: 6 weeks 0 days Estimated date of delivery: 10/22/2017 The right ovary measures 2.8 x 1.3 x 1.8 cm and is unremarkable. Color flow and spectral analysis demonstrates normal arterial flow in the right ovary. The left ovary is not seen. No adnexal mass is seen. Trace free fluid in cul-de-sac. IMPRESSION: Single intrauterine with an estimated gestational age of 6 weeks 0 days based on ultrasound measurement. The special procedures technologist reports visualization of embryonic heart activity flicker. However, M-mode tracing of embryonic heart activity could not be obtained due to early gestational age. Follow-up is recommended. RPTAT: HJES .Chace Trinidad MD, Date Time Electronically viewed and signed by .Chace Trinidad MD, MD on 02/26/2017 03:57 .S/ CC: JUWAN LIGHT PATENT SEARCHER Procedures/MDM Medical Decision Making: Patients vaginal bleeding is most likely consistent of possible threatened . Patient does not show any evidence of hypovolemic shock. Patients hemoglobin and hematocrit is stable. There is low suspicion for ectopic . TANIA results show a viable 6 week with possible heartbeat noted.. BetaHCG Quantitative is appropriate for .The patient is Rh+, does not need RhoGAM this time. There is no signs of symptoms of dehydration. There is low suspicion for sepsis. Patient appears well and is hemodynamically stable. Disposition: Home. Condition: Stable Rx: tylenol Instructions: Patient is advised to do bed rest, avoid heavy lifting, and avoid having sex until cleared by OB doctor. Patient is advised to follow up with OB doctor or here at the ER in 48 hours for reevaluation of symptoms, repeat beta HCG quantitative and ultrasound. Patient is advised that is symptoms are worst, severe bleeding, dizziness, severe abdominal pain, fever, worst signs and symptoms to return to the emergency department immediately. Disclaimer: Inadvertent spelling and grammatical errors are likely due to EHR/ dictation software use and do not reflect on the overall quality of patient care. Also, please note that the electronic time recorded on this note does not necessarily reflect the actual time of the patient encounter. Departure Diagnosis: Primary Impression: Vaginal bleeding in patient at less than 20 weeks gestation Additional Impression: Intrauterine Condition: Stable Patient Instructions: Bleeding During Early Additional Instructions: Patient is advised to do bed rest, avoid heavy lifting, and avoid having sex until cleared by OB doctor. Patient is advised to follow up with OB doctor or here at the ER in 48 hours for reevaluation of symptoms, repeat beta HCG quantitative and ultrasound. Patient is advised that is symptoms are worst, severe bleeding, dizziness, severe abdominal pain, fever, worst signs and symptoms to return to the emergency department immediately. JUWAN LIGHT. REGINA Feb 26, 2017 03:19
--- NOTE | 2017-02-26 03:57 | RADRPT ---
PROCEDURE: US OB. CLINICAL INDICATION: Vaginal bleeding . Clinical estimate gestational age is 6 weeks 3 days with estimated date of delivery 10/19/2017. TECHNIQUE: Transabdominal and transvaginal views of the pelvis are available for review. COMPARISON: 02/22/2017 FINDINGS: [place]-rump length:0.35 cm heart rate: The rad technologist reports visualization of embryonic heart activity fl icker. However, M-mode tracing of embryonic heart activity could not be obtained due to early gestat ional age. Ultrasound estimated gestational age:6 weeks 0 days Estimated date of delivery: 10/22/2017 The right ovary measures 2.8 x 1.3 x 1.8 cm and is unremarkable. Color flow and spectral analysis de monstrates normal arterial flow in the right ovary. The left ovary is not seen. No adnexal mass is s een. Trace free fluid in cul-de-sac. IMPRESSION: Single intrauterine with an estimated gestational age of 6 weeks 0 days based on ultrasoun d measurement. The rad technologist reports visualization of embryonic heart activity flicker . However, M-mode tracing of embryonic heart activity could not be obtained due to early gestational age. Follow-up is recommended. RPTAT: HJES .Chace Trinidad MD, Date Time Electronically viewed and signed by .Chace Trinidad MD, on 02/26/2017 03:57 .S/
[2017-02-26 04:03] LABS: BASOPHILS % 0.4 % (0.0-2.0); EOSINOPHILS # 0.1 10^3/ul (0.0-0.5); EOSINOPHILS % 1.1 % (0.0-7.0); HEMATOCRIT 35.7 % (37.0-47.0); HEMOGLOBIN 12.5 g/dl (12.0-16.0); LYMPHOCYTES # 1.9 10^3/ul (0.8-2.9); LYMPHOCYTES % 20.7 % (15.0-51.0); MEAN CORPUSCULAR HEMOGLOBIN 32.1 pg (29.0-33.0); MEAN CORPUSCULAR VOLUME 91.8 fl (82.0-101.0); MEAN PLATELET VOLUME 9.8 fl (7.4-10.4); MONOCYTE # 0.5 10^3/ul (0.3-0.9); MONOCYTES % 5.9 % (0.0-11.0); NEUTROPHIL # 6.4 10^3/ul (1.6-7.5); NEUTROPHILS % 71.6 % (39.0-77.0); PLATELET COUNT 314 10^3/UL (140-415); RED BLOOD COUNT 3.89 10^6/ul (4.20-5.40); RED CELL DISTRIBUTION WIDTH 11.9 % (11.5-14.5); WHITE BLOOD COUNT 8.9 10^3/ul (4.8-10.8)
[2017-02-26 04:14] LABS: ADD UMIC YES; UR AMORPHOUS CRYSTAL MODERATE /HPF (NONE SEEN); UR ASCORBIC ACID NEGATIVE (NEGATIVE); UR BACTERIA FEW /HPF (NONE SEEN); UR BILIRUBIN (Dip) NEGATIVE (NEGATIVE); UR BLOOD (Dip) 2+ mg/dL (NEGATIVE); UR CLARITY CLOUDY (CLEAR); UR COLOR YELLOW (YELLOW); UR GLUCOSE (Dip) NEGATIVE (NEGATIVE); UR KETONES (Dip) TRACE mg/dL (NEGATIVE); UR LEUKOCYTE ESTERASE (Dip) 2+ Leu/ul (NEGATIVE); UR MUCUS FEW /HPF (NONE SEEN); UR NITRITE (Dip) NEGATIVE (NEGATIVE); UR RBC 3 /HPF (0-5); UR SPECIFIC GRAVITY (Dip) 1.013 (1.003-1.030); UR SQUAMOUS EPITHELIAL CELL MANY /HPF (FEW); UR TOTAL PROTEIN (Dip) NEGATIVE (NEGATIVE); UR UROBILINOGEN (Dip) 1+ mg/dL (NEGATIVE)
[2017-02-26] MEDS ORDERED: ACET500C5 PO (05:52)
== END 2017-02-26 05:58 | disposition home or self-care (01) ==
LOC: FTE 23:53
DX: O20.9 Hemorrhage in early pregnancy, unspecified (principal); F17.210 Nicotine dependence, cigarettes, uncomplicated; O99.331 Smoking (tobacco) complicating pregnancy, first trimester; R10.2 Pelvic and perineal pain; Z3A.01 Less than 8 weeks gestation of pregnancy
CPT/HCPCS: 36415; 76801; 76817; 81001; 84702; 85025; 86900; 86901; Z7502; Z7610

== ENCOUNTER 2017-06-10 08:33 | Emergency (ER) | END 2017-06-10 11:55 | disposition home or self-care (01) ==